=== PATIENT | male | born 1965 | race Caucasian/White ===

== ENCOUNTER → 2017-08-25 | Outpatient (CLI) | payer BC ==
[~2017-08-25] MED LIST: IOHEXOL 300 MG/ML 100ML VIAL.; IOHEXOL 300 MG/ML 50 ML VIAL.; IV NORMAL SALINE 500ML BAG 500 ML; LIDOCAINE 1% Multi-Dose 50 ML VIAL.
== END | disposition home or self-care (01) ==
LOC: PCVCINTER 10:31
DX: I87.2 Venous insufficiency (chronic) (peripheral) (principal); I87.303 Chronic venous hypertension (idiopathic) without complications of bilateral lower extremity
CPT/HCPCS: 36012; 37252; 37253; 75822; 75825; 76937; C1751; C1753; C1769; C1894; J1644; J7040; Q9967

== ENCOUNTER → 2017-08-28 | Outpatient (CLI) | payer BC ==
[~2017-08-28] MED LIST changes: +ARNICA TOPICAL GEL 1.5OZ TUBE. TP; +CEPHALEXIN 250 MG CAPSULE.; +DIAZEPAM 10 MG TABLET.; +EPINEPHrine 1 MG/ML VIAL; -IOHEXOL 300 MG/ML 100ML VIAL.; -IOHEXOL 300 MG/ML 50 ML VIAL.; +IV NORMAL SALINE 1000ML BAG 1,000 ML; -IV NORMAL SALINE 500ML BAG 500 ML
== END ==
LOC: PCVCINTER 09:23
DX: I83.12 Varicose veins of left lower extremity with inflammation (principal); G57.22 Lesion of femoral nerve, left lower limb
CPT/HCPCS: 36478; C1751; C1769; C1894; J0171; J7030

== ENCOUNTER → 2017-11-29 | Outpatient (CLI) | payer BC | END | disposition home or self-care (01) | LOC: PCVCIMAG 14:45 | DX: I82.402 Acute embolism and thrombosis of unspecified deep veins of left lower extremity (principal); I87.2 Venous insufficiency (chronic) (peripheral) | CPT/HCPCS: 93971 ==